=== PATIENT | female | born 1975 ===

== ENCOUNTER 2020-06-11 10:03 | Outpatient (REF) | payer SELFPAY | END 2020-06-11 10:04 | disposition home or self-care (01) | LOC: HO.HAP 10:03 | PROVIDERS: PCP Internal Medicine; Referring Provider Internal Medicine; Visit Provider Internal Medicine | DX: Z13.89 Encounter for screening for other disorder (principal) | CPT/HCPCS: 92700 ==

== ENCOUNTER 2021-01-27 15:03 | Outpatient (REF) | payer SELFPAY | END 2021-01-27 15:04 | disposition home or self-care (01) | LOC: HO.HAP 15:03 | PROVIDERS: Visit Provider Internal Medicine | DX: Z13.89 Encounter for screening for other disorder (principal) ==

== ENCOUNTER 2021-04-22 10:48 | Outpatient (REF) | payer SELFPAY | END 2021-04-22 10:49 | disposition home or self-care (01) | LOC: HO.HAP 10:48 | PROVIDERS: Visit Provider Internal Medicine | DX: Z46.1 Encounter for fitting and adjustment of hearing aid (principal); H90.3 Sensorineural hearing loss, bilateral | CPT/HCPCS: 99499 ==

== ENCOUNTER 2022-12-02 12:25 | Outpatient (REF) | payer SELFPAY | END 2022-12-02 12:26 | disposition home or self-care (01) | LOC: HO.HAP 12:25 | PROVIDERS: Visit Provider Internal Medicine | DX: Z46.1 Encounter for fitting and adjustment of hearing aid (principal); H90.3 Sensorineural hearing loss, bilateral | CPT/HCPCS: V5266 ==